=== PATIENT | female | born 1980 | race Two or more races ===

== ENCOUNTER → 2019-01-29 | Outpatient (REF) | payer OTHER ==
[2019-01-29 21:11] LABS: ALBUMIN 3.6 GM/DL (3.2-5.2); ALT/SGPT 20 U/L (12-78); BILIRUBIN,TOTAL 0.3 MG/DL (0.2-1.0); BLOOD UREA NITROGEN 14 MG/DL (7-18); CALCIUM LEVEL 8.5 MG/DL (8.5-10.1); CARBON DIOXIDE LEVEL 27 MEQ/L (21-32); CHLORIDE LEVEL 107 MEQ/L (98-107); CREATININE FOR GFR 0.83 MG/DL (0.55-1.30); FERRITIN 15 NG/ML (8-252); FREE T4 1.01 NG/DL (0.76-1.46); GLOMERULAR FILTRATION RATE > 60.0 (>60); GLUCOSE, FASTING 83 MG/DL (70-100); IRON (FE) 88 UG/DL (50-170); POTASSIUM SERUM 4.5 MEQ/L (3.5-5.1); SODIUM LEVEL 140 MEQ/L (136-145); THYROID STIMULATING HORMONE 0.544 uIU/ML (0.358-3.740)
[2019-01-29 21:14] LABS: BASO % 0.4 % (0.0-1.0); EOS # 0.1 10^3/uL (0.0-0.50); EOS % 1.9 % (0.0-3.0); HEMATOCRIT 36.3 % (36.0-47.0); HEMOGLOBIN 11.2 g/dl (12.0-15.5); LYMPH # 1.9 10^3/uL (1.5-4.5); LYMPH % 27.6 % (24.0-44.0); MEAN CORPUSCULAR HEMOGLOBIN 24.3 pg (27.0-33.0); MEAN CORPUSCULAR HGB CONC 30.9 g/dl (32.0-36.5); MEAN CORPUSCULAR VOLUME 78.9 fl (80.0-96.0); MONO # 0.6 10^3/uL (0.0-0.8); MONO % 8.6 % (0.0-5.0); NEUTROPHILS # 4.3 10^3/uL (1.8-7.7); NEUTROPHILS % 61.4 % (36.0-66.0); PLATELET COUNT, AUTOMATED 275 10^3/uL (150-450)
[2019-01-29 21:58] LABS: POIKILOCYTOSIS 2+
[2019-01-29 21:59] LABS: SCHISTOCYTES 1+
[2019-01-29 22:00] LABS: PLATELET ESTIMATE NORMAL (NORMAL)
[2019-01-29 22:02] LABS: OVALOCYTES 2+
[2019-01-29 22:07] LABS: BURR CELLS 1+
== END ==
LOC: M SFHCLERA 17:10
PROVIDERS: ATTEND Physician Assistant
DX: R53.83 Other fatigue (principal)

== ENCOUNTER → 2019-04-27 | Outpatient (CLI) | payer OTHER ==
--- NOTE | 2019-04-27 14:27 | REP ---
BILATERAL MAMMOGRAM AND RIGHT BREAST ULTRASOUND: Family history of breast cancer. Tyrer-zick risk of breast cancer 15.4%. MLO and CC views of both breasts are performed. Mild scattered fibroglandular tissue is seen without evidence of mass or architectural distortion. No clustered microcalcifications are seen. The patient reports pain in the upper half of the right breast and there is no mammographic abnormality in this region. Real-time sonographic evaluation of the upper right breast demonstrates no cystic or solid nodule. IMPRESSION: BIRADS 1: BI-RADS/ACR category 1 mammogram. Negative Mammogram. ACR 1 negative mammogram. No mass or clustered microcalcifications. There is no mammographic or sonographic evidence of mass in the upper right breast where the patient complains of pain. Followup mammogram recommended in 1 year. This mammogram was interpreted with the aid of an FDA-approved computer-aided detection system. A. Negative x-ray reports should not delay biopsy if a dominant or clinically suspicious mass is present. B. Four to eight percent of cancers are not identified by x-ray. C. Adenosis and dense breasts may obscure an underlying neoplasm. The patient states she/he had a clinical breast exam in March 2019. The patient letter being requested is M2. Electronically Signed by Sidney Romeo MD 04/27/2019 04:18 P
== END ==
LOC: M RAD 11:50
PROVIDERS: ATTEND Physician Assistant
DX: N64.4 Mastodynia (principal); Z80.3 Family history of malignant neoplasm of breast

== ENCOUNTER 2019-06-19 20:32 | Emergency (ER) | payer OTHER ==
[~2019-06-19] VITALS: Ht 160 cm; Wt 72.3 kg
[2019-06-19] MEDS ORDERED: METO1TAB7 (20:38)
[2019-06-19] MEDS ORDERED: BUTA-198 (20:38)
[2019-06-19] MEDS ORDERED: METOCLOPRAMIDE INJ 10MG/2ML VIAL (J2765) IV ONE (22:30)
[2019-06-19] MEDS ORDERED: NS 1,000 ML IV ONE (22:30)
[2019-06-19] MEDS ORDERED: KETOROLAC 30 MG/ML VIAL (J1885) IV ONE (22:30)
[2019-06-20] MEDS ORDERED: KETO10TAB PO (00:29)
[2019-06-20 00:44] VITALS: BP 123/64
--- NOTE | 2019-06-20 06:40 | ECGEPIP ---
[facility] - ED Test Date: 2019-06-19 Pat Name: GEOFF ULLOA Department: Room: - Gender: Female Sourcer: AAKASH : 1980 Requested By: MACKENZIE DAVEY BUILD AND DEPLOYMENT ENGINEER Order Number: [id number] Reading MD: Marzena Najera Measurements Intervals [place] Rate: 86 P: 69 [place]: 153 QRS: 5 QRSD: 76 T: QT: 365 QTc: 438 Interpretive Statements SINUS RHYTHM NONSPECIFIC ST & T-WAVE ABNORMALITY DELAYED R WAVE PROGRESSION NO PRIOR ECG FOR COMPARISON Electronically Signed on 06-20-2019 6:39:46 EDT by Marzena Najera
[2019-06-22] MEDS ORDERED: AMOX500C PO (16:14)
== END 2019-06-20 00:45 | disposition home or self-care (01) ==
LOC: M ED 20:32
DX: R00.2 Palpitations (principal); G43.909 Migraine, unspecified, not intractable, without status migrainosus; B34.9 Viral infection, unspecified; I48.91 Unspecified atrial fibrillation; Z79.899 Other long term (current) drug therapy
CPT/HCPCS: 80047; 87880; 93005; 96361; 96374; 96375; 99284; J1885; J2765

== ENCOUNTER 2020-08-15 06:14 | Day surgery (SDC) | payer OTHER ==
[~2020-08-15] VITALS: Ht 160 cm; Wt 96.2 kg
[~2020-08-15 06:14] MED LIST: AMOX500C PO; BUTA-198; FERR325T18; HEARTAB2; KETO10TAB PO; LIDOCAINE 1% MDV 20ML VIAL SQ PRN; METO1TAB32 PO; METO1TAB7; NAPR-885; OMEP-221; VITA500T9
[2020-08-15] MEDS ORDERED: ceFAZolin 2 GM/D5W 50 ML IV BAG (J0690 PER 500MG) As Ordered ONE (06:46)
[2020-08-15 06:53] LABS: BASO % 0.4 % (0.0-1.0); EOS # 0.1 10^3/uL (0.0-0.5); EOS % 1.6 % (0.0-3.0); HEMOGLOBIN 9.6 g/dl (12.0-15.5); LYMPH # 2.6 10^3/uL (1.5-5.0); LYMPH % 31.4 % (24.0-44.0); MEAN CORPUSCULAR HEMOGLOBIN 26.1 pg (27.0-33.0); MEAN CORPUSCULAR VOLUME 81.5 fl (80.0-96.0); MONO # 0.7 10^3/uL (0.0-0.8); NEUTROPHILS # 4.7 10^3/uL (1.5-8.5); NEUTROPHILS % 58.4 % (36.0-66.0); PLATELET COUNT, AUTOMATED 332 10^3/uL (150-450); RED BLOOD COUNT 3.68 10^6/uL (4.00-5.40); WHITE BLOOD COUNT 8.1 10^3/uL (4.0-10.0)
[2020-08-15] MEDS ORDERED: MIDAZOLAM INJ 2MG/2ML VIAL (J2250 PER 1MG) As Ordered ONE (06:57)
[2020-08-15] MEDS ORDERED: fentaNYL 250 MCG/5 ML INJECTION (J3010) As Ordered ONE (06:58)
[2020-08-15] MEDS ORDERED: dexameTHASONE 4 MG/ML 1ML VIAL (J1100 PER 1MG) As Ordered ONE (06:59)
[2020-08-15] MEDS ORDERED: ROCURONIUM BROMIDE 50 MG/5 ML VIAL As Ordered ONE (06:59)
[2020-08-15] MEDS ORDERED: propofoL 200 MG/20 ML VIAL As Ordered ONE ×2 (06:59→11:35)
[2020-08-15] MEDS ORDERED: LIDOCAINE 2% 100MG/5ML SDV (FOR ANES.) As Ordered ONE (07:00)
[2020-08-15] MEDS ORDERED: LR 1,000 ML IV ONE (07:00)
[2020-08-15] MEDS ORDERED: METHYLENE BLUE 0.5% (5MG/ML) 10 ML AMP (PROVAYBLUE) As Ordered ONE (07:10)
[2020-08-15] MEDS ORDERED: ACETAMINOPHEN 1000MG 100ML IV BTL (OFIRMEV) (J0131 PER 10MG) As Ordered ONE (07:13)
[2020-08-15] MEDS ORDERED: METOCLOPRAMIDE INJ 10MG/2ML VIAL (J2765 PER 1) As Ordered ONE (07:13)
[2020-08-15] MEDS ORDERED: ONDANSETRON 4MG/2ML VIAL As Ordered ONE (07:13)
[2020-08-15 07:23] LABS: HCG, SERUM QUALITATIVE NEGATIVE (NEGATIVE)
[2020-08-15 07:36] LABS: APPEARANCE, URINE CLEAR (CLEAR); BACTERIA, URINE AUTO NEGATIVE (NEGATIVE); BILIRUBIN, URINE AUTO NEGATIVE (NEGATIVE); BLOOD, URINE BLOOD 3+ (NEGATIVE); COLOR, URINE YELLOW (YELLOW); GLUCOSE, URINE (UA) AUTO NEGATIVE (NEGATIVE); KETONE, URINE AUTO TRACE mg/dL (NEGATIVE); LEUKOCYTE ESTERASE, URINE AUTO TRACE (NEGATIVE); MUCUS, URINE SMALL (NEGATIVE); NITRITE, URINE AUTO NEGATIVE (NEGATIVE); PROTEIN, URINE AUTO NEGATIVE (NEGATIVE); RBC, URINE AUTO 1 /HPF (0-3); SPECIFIC GRAVITY URINE AUTO 1.023 (1.002-1.035); SQUAMOUS EPITHELIAL CELL UR AU 7 /HPF (0-6); UROBILINOGEN, URINE AUTO 0.2 mg/dL (0.0-2.0); WBC, URINE AUTO 2 /HPF (0-3)
[2020-08-15] MEDS ORDERED: BUPIVACAINE LIPOSOME/PF 1.3% 20ML VIAL (13.3MG/ML)(EXPAREL)(C9290 PER1MG) As Ordered ONE (07:43)
[2020-08-15] MEDS ORDERED: ePHEDrine SULFATE 25 MG/5 ML(5MG/ML) SYRINGE As Ordered ONE (08:52)
[2020-08-15] MEDS ORDERED: HYDROmorphone HCL 2 MG/ML 1ML VIAL (J1170) As Ordered ONE (10:15)
[2020-08-15] MEDS ORDERED: NEOSTIGMINE 10MG/10ML VIAL (J2710 PER 0.5MG) As Ordered ONE (10:27)
[2020-08-15] MEDS ORDERED: GLYCOPYRROLATE INJ 0.2 MG/ML 2 ML VIAL As Ordered ONE (10:27)
[2020-08-15] MEDS ORDERED: fentaNYL 100 MCG/2 ML INJECTION (J3010) As Ordered ONE (10:59)
[2020-08-15] MEDS: fentaNYL 100 MCG/2 ML INJECTION (J3010) IV PRN ×4 (11:03→11:27)
[2020-08-15] MEDS ORDERED: METOCLOPRAMIDE INJ 10MG/2ML VIAL (J2765 PER 1) IV PRN (11:15)
[2020-08-15] MEDS ORDERED: ONDANSETRON 4MG/2ML VIAL IV PRN (11:15)
[2020-08-15] MEDS ORDERED: oxyCODONE 5MG TAB PO PRN (11:15)
[2020-08-15] MEDS ORDERED: MEPERIDINE INJ 25 MG/ML VIAL (J2175) IV PRN (11:15)
[2020-08-15] MEDS ORDERED: LR 1,000 ML IV SCH (11:15)
[2020-08-15 12:30] VITALS: BP 125/75
[2020-08-15 14:00] VITALS: BP 122/74
[2020-08-15 18:00] VITALS: BP 104/56
[2020-08-15 22:00] VITALS: BP 123/65
[2020-08-16 02:00] VITALS: BP 117/64
[2020-08-16 06:00] VITALS: BP 102/63
[2020-08-16 07:02] LABS: BASO % 0.1 % (0.0-1.0); EOS % 0.1 % (0.0-3.0); HEMATOCRIT 24.9 % (36.0-47.0); HEMOGLOBIN 7.9 g/dl (12.0-15.5); LYMPH # 1.8 10^3/uL (1.5-5.0); MEAN CORPUSCULAR HEMOGLOBIN 25.6 pg (27.0-33.0); MEAN CORPUSCULAR HGB CONC 31.7 g/dl (32.0-36.5); MEAN CORPUSCULAR VOLUME 80.8 fl (80.0-96.0); MONO # 1.1 10^3/uL (0.0-0.8); MONO % 10.4 % (0.0-5.0); NEUTROPHILS # 7.7 10^3/uL (1.5-8.5); PLATELET COUNT, AUTOMATED 282 10^3/uL (150-450); RED BLOOD COUNT 3.08 10^6/uL (4.00-5.40); WHITE BLOOD COUNT 10.7 10^3/uL (4.0-10.0)
--- NOTE | 2020-08-16 08:16 | DS.PDOC ---
Discharge Summary General Date of Admission 08/15/2020 Date of Discharge 08/16/2020 Attending Physician: ABDIRAHMAN ZELAYA DO Discharge Summary PROCEDURES PERFORMED DURING STAY: CAMI, BS, cystoscopy. ADMITTING DIAGNOSES: 1. Symptomatic fibroid uterus 2. Anemia 3. Obesity DISCHARGE DIAGNOSES: 1. DELFINO COMPLICATIONS/CHIEF COMPLAINT: Symptomatic Fibroid Uterus, Abnormal Uterine Bleed. HISTORY OF PRESENT ILLNESS: . HOSPITAL COURSE: Patient was admitted to the Pre-op surgical waiting where she was prepped for surgery. She was then taken to the operating room where she underwent an uncomplicated CAMI, BS, cystoscopy for SFU. She was awoken from general anesthesia and taken to the PACU for immediate post-operative recovery. She was then transferred to the inpatient surgical lopez for continued post- operative care. She had her leo catheter removed on POD#0. On day of discharge, she was ambulating well, tolerating a regular diet, voiding spontaneously, +flatus, and pain well-controlled on oral pain medications. She was counseled on strict return precautions and to pick up driver her discharge medications at [facility]. She was instructed to f/u for post-operative appointment in 2 weeks. All questions answered. DISCHARGE MEDICATIONS: Please see below. ALLERGIES: Adhesives PHYSICAL EXAMINATION ON DISCHARGE: VITAL SIGNS: Please see below. GENERAL: Well-appearing, resting comfortably in bed in NAD, conversing in full sentences, AAOx3 HEENT: NC/AT, airway patent and self-maintained. CARDIOVASCULAR EXAMINATION: well-perfused RESPIRATORY EXAMINATION: no exaggerated respiratory effort appreciated ABDOMINAL EXAMINATION: soft, NT/ND, incision c/d/i - dressing removed by jd hoganvicolton, steri-strips intact EXTREMITIES: No calf-tenderness, no edema SKIN: warm, pink, dry LABORATORY DATA: Please see below. PROGNOSIS: Good ACTIVITY: As tolerated. DIET: Regular as tolerated DISPOSITION: To home DISCHARGE INSTRUCTIONS: 1. See patient scheduling coordinator ITEMS TO FOLLOWUP ON ON OUTPATIENT: 1. Incision check at [facility] INTAKE RN in 2 weeks as scheduled DISCHARGE CONDITION: Stable. TIME SPENT ON DISCHARGE: Greater than 20 minutes. Vital Signs/I&Os Vital Signs Date Time Temp Pulse Resp B/P (MAP) Pulse Ox O2 Delivery O2 Flow Rate FiO2 08/16/20 06:00 99.9 92 24 102/63 (76) 97 Room Air 08/15/20 13:00 2.0 I&O- Last 24 Hours up to 6 AM 08/16/20 06:00 Intake Total 2200 ml Output Total 1680 ml Balance 520 ml Laboratory Data Labs 24H Laboratory Tests 2 08/16/20 06:39: Immature Granulocyte % (Auto) 0.4, Neutrophils (%) (Auto) 72.0H, Lymphocytes (%) (Auto) 17.0L, Monocytes (%) (Auto) 10.4H, Eosinophils (%) (Auto) 0.1, Basophils (%) (Auto) 0.1, Neutrophils # (Auto) 7.7, Lymphocytes # (Auto) 1.8, Monocytes # (Auto) 1.1H, Eosinophils # (Auto) 0.0, Basophils # (Auto) 0.0, Nucleated Red Blood Cells % (auto) 0.0 CBC/BMP Laboratory Tests 08/16/20 06:39 Discharge Medications Scheduled Ferrous Sulfate (Ferrous Sulfate) 325 Mg Tablet, DAILY, (Reported) Metoprolol Succinate (Metoprolol Succinate) 25 Mg Tab.er.24h, 75 MG PO QHS, ( Reported) Miscellaneous Medications Ascorbic Acid (Vitamin C) 500 Mg Tablet, (Reported) Famotidine (Heartburn Relief) 10 Mg Tablet, (Reported) Omeprazole (Omeprazole) 40 Mg Capsule., (Reported) Allergies Coded Allergies: No Known Allergies (Unverified , 08/08/20) ABDIRAHMAN ZELAYA DO Aug 16, 2020 08:16
--- NOTE | 2020-08-16 22:10 | ROOPDOC ---
[facility] Report Of Operation Report of Operation DATE OF PROCEDURE: 08/15/20 PREPROCEDURE DIAGNOSES: 1. Symptomatic Fibroid uterus 2. Abnormal uterine bleeding 3. Anemia 4. Obesity POSTPROCEDURE DIAGNOSES: 1. Symptomatic Fibroid uterus 2. Abnormal uterine bleeding 3. Anemia 4. Obesity PROCEDURE: 1. Total abdominal hysterectomy 2. Bilateral salpingectomy 3. Cystoscopy SURGEON: Dr. Minal Celeste MD PROCESS CONSULTANT: Dr. Edie Srinivasan MD ANESTHESIA: General. ESTIMATED BLOOD LOSS: Approximately 90 mL. COMPLICATIONS: None DESCRIPTION OF PROCEDURE: The risks, benefits, indications and alternatives of the procedure were reviewed with the patient and informed consent was obtained. The pt was taken to the operating room where general anesthesia was obtained without difficulty. The pt was then placed in the low lithotomy position using Anshu Stirrups. An exam under anesthesia was then performed and significant for a midline, 16-week sized, axial uterus. An abdominal and vaginal prep were then performed in the normal, sterile fashion and a leo catheter was placed. A Pfannenstiel skin incision was then made and carried down to the underlying layer of fascia using electrocautery. The fascia was entered with Bovie cautery and extended bilaterally. The underlying rectus fascia and muscle layers were then in the midline and peritoneum identified and entered bluntly. The peritoneal incision was then extended superiorly and inferiorly using Bovie cautery. Manual and visual examination of the pelvis was notable for a lobular 16 week size uterus with multiple fibroids. Bilateral ovaries and fallopian tubes were normal-appearing. The bowel was then packed from the operating field using moist laps. A Mobius self-retaining retractor was placed into the abdominal cavity and opened for pelvic exposure. Two [place]on clamps were placed across each fallopian tube and utero-ovarian ligament immediately lateral to the uterus, and the uterus was elevated to the level of the incision. The round ligaments were bilaterally grasped with [place] clamps near the uterine cornua. The round ligaments were then suture ligated with 0-vicryl and transected using electrocautery bilaterally, allowing entry into the broad ligament. The anterior leaves of the broad ligament were then incised along the bladder reflection on both sides to the midline, and the posterior leaves of the broad ligament were incised 1-2 cm inferiorly. The pararectal spaces were then developed, and the ureters identified bilaterally. A window was created in an avascular plane of the broad ligament, below and parallel to the IP ligament, and above the ureter. The fallopian tube and utero-ovarian ligaments were then doubly clamped as close as possible to the uterine corpus, transected, and suture ligated with 0-vicryl on both sides. The pedicles were then reinspected, with excellent hemostasis noted. The bilateral fallopian tubes were transected off of the mesosalpinx with the Ligasure device and sent to pathology. The bladder was then gently dissected off the lower uterine segment and cervix using a sponge stick, until the endopelvic fascia was visualized. The uterine arteries were then identified along the lateral aspects of the uterus at the level of the isthmus and skeletonized. The uterine arteries were then doubly clamped, transected with the Ligasure, and suture ligated. Hemostasis was assured. The cardinal ligaments were then clamped, transected with the Ligasure, and suture ligated bilaterally. Finally, the uterosacral ligaments were clamped, transected with the Ligasure, and suture ligated bilaterally. Hemostatis was noted. Curved clamps were placed across the vagina just under the cervix and the uterus and cervix were amputated using Guicho scissors. The vaginal cuff angles were closed and transfixed to the ipsilateral uterosacral and cardinal ligaments. The remainder of the cuff was closed using 0-vicryl in an interrupted fashion with care given to incorporate the anterior pubocervical fascia and the posterior rectovaginal fascia. The cystoscope was then primed and advanced through the urethra and into the bladder. Both ureteral orifices were identified and bilateral efflux of urine visualized. A survey of bladder showed no defects or visible suture. The cystoscope was then removed and the Leo catheter replaced to drain the bladder. Gloves were exchanged and attention was then returned to the abdomen which was then copiously irrigated. All pedicles were noted to be hemostatic. All packing and instruments were removed from the abdomen. The fascia was reapproximated using 0-vicryl in a running fashion. The subcutaneous tissue was reapproximated using 3-0 vicryl in an interrupted fashion. The skin was closed with 4-0 monocryl in a running fashion. A pressure dressing was applied A manual exam was then performed and the vagina demonstrated excellent suspension and elevation. A vaginal sweep was performed and confirmed no retained foreign objects remained in the vagina. At the completion of the case, sponge, lap, needle, and instrument counts were correct x2 and pt was taken to PACU in stable condition. MINAL CELESTE DO Aug 16, 2020 22:10
== END 2020-08-16 11:20 | disposition home or self-care (01) ==
LOC: M SDC 06:14 → M MS5PR 12:20 → M SDC 08-16 11:20
DX: C55 Malignant neoplasm of uterus, part unspecified (principal); I10 Essential (primary) hypertension; I48.91 Unspecified atrial fibrillation; N93.9 Abnormal uterine and vaginal bleeding, unspecified; D50.0 Iron deficiency anemia secondary to blood loss (chronic); E66.9 Obesity, unspecified; K21.9 Gastro-esophageal reflux disease without esophagitis; L20.9 Atopic dermatitis, unspecified; G43.909 Migraine, unspecified, not intractable, without status migrainosus; Z79.899 Other long term (current) drug therapy
CPT/HCPCS: 36415; 58571; 81001; 84703; 85025; 86850; 88307; 88342; C9290; J0690; J1100; J1170; J1885; J2250; J2405; J2710; J2765; J3010

== ENCOUNTER → 2020-09-04 | Outpatient (CLI) | payer OTHER ==
[~2020-09-04] MED LIST changes: +GASTROGRAFIN SOLUTION 30ML (Q9963) As Ordered ONE; +ISOVUE-370 76% 100ML VIAL As Ordered ONE; -LIDOCAINE 1% MDV 20ML VIAL SQ PRN
--- NOTE | 2020-09-11 10:52 | REP ---
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 No comparison study. CT CONTRAST DOSE: 100ml of intravenous Isovue 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 The lung tejeda are well inflated and clear. There is no evidence of pulmonary mass, suspicious pulmonary nodule, or infiltrate of atelectasis or pleural effusion is seen. There is no evidence of pericardial effusion> no hilar or mediastinal mass or adenopathy is observed. There is good opacification of the pulmonary arterial tree and the thoracic aorta and no vascular abnormality is observed. No bony destructive lesion is seen. No extra thoracic mass or adenopathy is seen. IMPRESSION: No active disease. MTDD
--- NOTE | 2020-09-11 10:53 | REP ---
CT ABDOMEN AND PELVIS WITHOUT AND WITH IV CONTRAST: WITH ORAL CONTRAST HISTORY: Uterine leiomyosarcoma. Question metastatic disease. CT CONTRAST DOSE: 100 mL of intravenous Isovue-370. CT FINDINGS: Digital preliminary hand wrapper operator radiograph is unremarkable. Normal bowel gas pattern. The liver and the spleen are normal in size and homogeneous in texture on pre and post contrast imaging. No focal hepatic lesion. Normal adrenal glands. No abnormality is noted in the pancreas or in the gallbladder. There is a retroaortic left renal vein. No retroperitoneal mass or adenopathy is observed. A normal appendix is seen in the right lower quadrant. The ovaries are both somewhat high in the pelvis post hysterectomy but unremarkable. There is a 2.2 cm follicle cyst in the left ovary. Some postoperative changes are seen across the suprapubic lower abdominal wall anteriorly. No pelvic mass or adenopathy or abnormal fluid collection is seen. Small and large intestinal bowel loops are normal in the abdomen and pelvis. The kidneys enhance symmetrically and are morphologically intact. No evidence of bony destructive lesion is seen. IMPRESSION: Posthysterectomy changes. No acute abdominal or pelvic abnormality. No mass or adenopathy seen. MTDD
== END ==
LOC: M RAD 16:23
DX: C55 Malignant neoplasm of uterus, part unspecified (principal); Z90.79 Acquired absence of other genital organ(s)
CPT/HCPCS: 71260; 74178; Q9963; Q9967

== ENCOUNTER 2020-11-07 12:01 | Emergency (ER) | payer OTHER ==
[~2020-11-07] VITALS: Ht 160 cm; Wt 95.7 kg
[~2020-11-07 12:01] MED LIST changes: -GASTROGRAFIN SOLUTION 30ML (Q9963) As Ordered ONE; -ISOVUE-370 76% 100ML VIAL As Ordered ONE
[2020-11-07] MEDS ORDERED: ACET-683 PO (12:11)
[2020-11-07] MEDS ORDERED: NS 1,000 ML IV ONE (13:45)
[2020-11-07] MEDS ORDERED: MECLIZINE 25 MG TABLET PO ONE (13:45)
--- NOTE | 2020-11-07 13:50 | REP ---
INDICATION: dizziness, h/o uterine CA. COMPARISON: None. TECHNIQUE: Helical scanning is acquired. 5 mm axial images were reformatted. Coronal MPR images were generated. FINDINGS: Bone window settings demonstrate an intact bony calvarium. There is no evidence of skull fracture or incidental bony calvarial lesion. The visualized paranasal sinuses appear clear. No intraorbital abnormality is seen. On soft tissue window setting images; the lateral, third, and fourth ventricles are normal in size and position. Romeo-white differentiation pattern is normal above and below the tentorium. There are is no evidence of intracranial hemorrhage. No mass, edema, infarction, or midline shift is seen. No extra-axial fluid collection is appreciated. IMPRESSION: Negative noncontrast head CT. <Electronically signed by Azael Rowell > 11/07/20 [id number]
[2020-11-07 14:10] LABS: HEMOGLOBIN 11.6 g/dl (12.0-15.5); RED BLOOD COUNT 5.02 10^6/uL (4.00-5.40); WHITE BLOOD COUNT 8.3 10^3/uL (4.0-10.0)
[2020-11-07 14:11] LABS: BASO % 0.5 % (0.0-1.0); EOS # 0.1 10^3/uL (0.0-0.5); EOS % 0.7 % (0.0-3.0); HEMATOCRIT 38.1 % (36.0-47.0); LYMPH # 1.7 10^3/uL (1.5-5.0); LYMPH % 20.5 % (24.0-44.0); MEAN CORPUSCULAR HEMOGLOBIN 23.1 pg (27.0-33.0); MEAN CORPUSCULAR HGB CONC 30.4 g/dl (32.0-36.5); MEAN CORPUSCULAR VOLUME 75.9 fl (80.0-96.0); MONO # 0.4 10^3/uL (0.0-0.8); MONO % 4.7 % (0.0-5.0); NEUTROPHILS # 6.1 10^3/uL (1.5-8.5); NEUTROPHILS % 73.2 % (36.0-66.0); PLATELET COUNT, AUTOMATED 395 10^3/uL (150-450)
[2020-11-07 14:43] LABS: ALBUMIN 3.7 GM/DL (3.2-5.2); ALT/SGPT 21 U/L (12-78); BILIRUBIN,TOTAL 0.5 MG/DL (0.2-1.0); BLOOD UREA NITROGEN 13 MG/DL (7-18); CARBON DIOXIDE LEVEL 26 MEQ/L (21-32); CHLORIDE LEVEL 107 MEQ/L (98-107); CK-MB VALUE MASS < 1.0 NG/ML (<3.6); CPK CREATINE PHOSPHOKINASE 104 U/L (26-192); CREATININE FOR GFR 0.79 MG/DL (0.55-1.30); GLOMERULAR FILTRATION RATE > 60.0 (>58); GLUCOSE, FASTING 91 MG/DL (70-100); MB/CK RELATIVE INDEX 0.96 (< OR =4); POTASSIUM SERUM 4.3 MEQ/L (3.5-5.1); SODIUM LEVEL 140 MEQ/L (136-145); TOTAL PROTEIN 7.5 GM/DL (6.4-8.2); TROPONIN I < 0.02 NG/ML (< 0.10)
[2020-11-07 15:45] LABS: APPEARANCE, URINE CLEAR (CLEAR); BACTERIA, URINE AUTO NEGATIVE (NEGATIVE); BILIRUBIN, URINE AUTO NEGATIVE (NEGATIVE); BLOOD, URINE BLOOD NEGATIVE (NEGATIVE); COLOR, URINE YELLOW (YELLOW); GLUCOSE, URINE (UA) AUTO NEGATIVE (NEGATIVE); KETONE, URINE AUTO NEGATIVE (NEGATIVE); LEUKOCYTE ESTERASE, URINE AUTO NEGATIVE (NEGATIVE); MUCUS, URINE SMALL (NEGATIVE); NITRITE, URINE AUTO NEGATIVE (NEGATIVE); PROTEIN, URINE AUTO NEGATIVE (NEGATIVE); RBC, URINE AUTO 1 /HPF (0-3); SPECIFIC GRAVITY URINE AUTO 1.024 (1.002-1.035); SQUAMOUS EPITHELIAL CELL UR AU 0 /HPF (0-6); UROBILINOGEN, URINE AUTO 0.2 mg/dL (0.0-2.0); WBC, URINE AUTO 0 /HPF (0-3)
[2020-11-07] MEDS ORDERED: MECL1TAB31 PO (15:53)
[2020-11-07 16:03] VITALS: BP 123/76
--- NOTE | 2020-11-08 08:28 | ECGEPIP ---
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
== END 2020-11-07 16:05 | disposition home or self-care (01) ==
LOC: M ED 12:01
DX: H81.10 Benign paroxysmal vertigo, unspecified ear (principal); I48.91 Unspecified atrial fibrillation; I10 Essential (primary) hypertension; G43.909 Migraine, unspecified, not intractable, without status migrainosus; K21.9 Gastro-esophageal reflux disease without esophagitis; Z79.899 Other long term (current) drug therapy

== ENCOUNTER → 2020-12-27 | Outpatient (CLI) | payer OTHER ==
[~2020-12-27] MED LIST changes: +ACET-683 PO; +GASTROGRAFIN SOLUTION 30ML (Q9963) As Ordered ONE; +ISOVUE-370 76% 100ML VIAL As Ordered ONE; +MECL1TAB31 PO
--- NOTE | 2020-12-28 06:23 | REP ---
INDICATION: LEIOMYOSARCOMA COMPARISON: 09/04/2020 TECHNIQUE: Axial contrast enhanced images from the thoracic inlet to the upper abdomen using 100 ml Isovue 370 intravenous contrast material followed by CT of the abdomen and pelvis. Coronal and sagittal reformations obtained. This CT examination was performed using the following dose reduction techniques: Automated exposure control, adjustment of mA and/or kv according to the patient's size, and use of iterative reconstruction technique. FINDINGS: Bilateral lung tejeda are well aerated and clear. No consolidation, suspicious nodule or mass lesion. No pleural effusion. No pneumothorax. Tracheobronchial tree is patent. No axillary, hilar, or mediastinal adenopathy. Thoracic aorta, pulmonary vasculature, and heart/pericardium appear normal. Surrounding musculoskeletal structures are intact and without acute osseous abnormality. IMPRESSION: Normal contrast-enhanced chest CT. No acute mediastinal or pleuroparenchymal process. No evidence for neoplasm or metastatic disease. <Electronically signed by Haroldo Angelo > 12/28/20 [id number]
--- NOTE | 2020-12-28 06:30 | REP ---
INDICATION: LEIOMYOSARCOMA. COMPARISON: 09/04/2020 TECHNIQUE: Axial contrast-enhanced images from the lung bases to the pubic symphysis using oral and 100 cc Isovue 370 intravenous contrast material. Delayed images of the abdomen as well as coronal and sagittal reformations obtained.. This CT examination was performed using the following dose reduction techniques: Automated exposure control, adjustment of mA and/or kv according to the patient's size, and the use of iterative reconstruction technique. FINDINGS: Liver, spleen, pancreas, gallbladder, bilateral adrenal glands and kidneys are normal. The enteric system including stomach, small, and large bowel appears normal. No evidence for obstruction or acute inflammatory process. Normal terminal ileum and appendix are identified in the right lower quadrant. Pelvis demonstrates normal bladder and evidence for prior hysterectomy. No ascites. No free air. No intraperitoneal or retroperitoneal adenopathy. Abdominal aorta and vasculature appear normal. Musculoskeletal structures are intact and without acute osseous abnormality. IMPRESSION: No acute abdominopelvic pathology appreciated. No evidence for metastatic disease or obvious neoplasm. <Electronically signed by Haroldo Angelo > 12/28/20 [id number]
== END ==
LOC: M RAD 08:36
PROVIDERS: ATTEND Obstetrics & Gynecology
DX: C49.9 Malignant neoplasm of connective and soft tissue, unspecified (principal)

== ENCOUNTER → 2021-02-06 | Outpatient (CLI) | payer OTHER ==
[~2021-02-06] MED LIST changes: -GASTROGRAFIN SOLUTION 30ML (Q9963) As Ordered ONE; -ISOVUE-370 76% 100ML VIAL As Ordered ONE
--- NOTE | 2021-02-06 14:47 | REP ---
INDICATION: LT OVARIAN CYST. COMPARISON: 11/13/2020. TECHNIQUE: Transabdominal and transvaginal scanning performed. FINDINGS: The bladder measures 6.8 x 6.3 x 8.1 cm. The patient has had a prior hysterectomy. The ovaries could not be visualized on transabdominal or endovaginal imaging. There is no definite mass or free fluid in the pelvis. IMPRESSION: Status post hysterectomy. The ovaries could not be visualized on today's exam. No definite mass or free fluid. The previously noted 3.3 cm left ovarian cyst on the ultrasound of 11/13/2020 does appear to have decreased in size on the follow-up CT of abdomen and pelvis 12/27/2020, on the CT the largest left ovarian cyst measures approximately 2.1 cm. <Electronically signed by Sidney Romeo > 02/06/21 [id number]
== END ==
LOC: M RAD 12:06
PROVIDERS: ATTEND Obstetrics & Gynecology
DX: N83.202 Unspecified ovarian cyst, left side (principal); Z90.79 Acquired absence of other genital organ(s)

== ENCOUNTER 2021-02-16 08:32 | Emergency (ER) | payer OTHER ==
[~2021-02-16] VITALS: Ht 160 cm; Wt 100.4 kg
[2021-02-16 09:37] LABS: BASO % 0.2 % (0.0-1.0); EOS # 0.1 10^3/uL (0.0-0.5); EOS % 0.7 % (0.0-3.0); HEMATOCRIT 38.3 % (36.0-47.0); HEMOGLOBIN 12.4 g/dl (12.0-15.5); LYMPH # 1.5 10^3/uL (1.5-5.0); LYMPH % 16.3 % (24.0-44.0); MEAN CORPUSCULAR HEMOGLOBIN 26.3 pg (27.0-33.0); MEAN CORPUSCULAR HGB CONC 32.4 g/dl (32.0-36.5); MEAN CORPUSCULAR VOLUME 81.1 fl (80.0-96.0); MONO # 0.6 10^3/uL (0.0-0.8); MONO % 6.7 % (2.0-8.0); NEUTROPHILS # 6.9 10^3/uL (1.5-8.5); NEUTROPHILS % 75.9 % (36.0-66.0); PLATELET COUNT, AUTOMATED 362 10^3/uL (150-450); RED BLOOD COUNT 4.72 10^6/uL (4.00-5.40)
[2021-02-16 09:47] LABS: INR 0.96
[2021-02-16 09:48] LABS: PARTIAL THROMBOPLASTIN TIME 27.8 SECONDS (24.2-38.5)
[2021-02-16 10:00] LABS: ALBUMIN 3.6 GM/DL (3.2-5.2); ALT/SGPT 20 U/L (12-78); AMYLASE 50 U/L (25-115); BILIRUBIN,DIRECT 0.1 MG/DL (0.0-0.2); BILIRUBIN,TOTAL 0.3 MG/DL (0.2-1.0); BLOOD UREA NITROGEN 14 MG/DL (7-18); CALCIUM LEVEL 9.1 MG/DL (8.5-10.1); CARBON DIOXIDE LEVEL 27 MEQ/L (21-32); CHLORIDE LEVEL 107 MEQ/L (98-107); CREATININE FOR GFR 0.79 MG/DL (0.55-1.30); GLOMERULAR FILTRATION RATE > 60.0 (>58); GLUCOSE, FASTING 96 MG/DL (70-100); LIPASE 125 U/L (73-393); POTASSIUM SERUM 4.5 MEQ/L (3.5-5.1); SODIUM LEVEL 137 MEQ/L (136-145); TOTAL PROTEIN 7.2 GM/DL (6.4-8.2)
[2021-02-16] MEDS ORDERED: NS 1,000 ML IV ONE (10:00)
[2021-02-16] MEDS ORDERED: ISOVUE-370 76% 100ML VIAL As Ordered ONE (10:04)
[2021-02-16 10:28] VITALS: BP 136/88
--- NOTE | 2021-02-16 10:44 | REP ---
INDICATION: abdominal cramping, lower gi bleed. COMPARISON: Abdomen/pelvis CT studies dated 09/04/2020 and 12/27/2020. TECHNIQUE: Abdomen/pelvis CT with IV contrast, without bowel contrast. Patient has a history of uterine leiomyosarcoma and hysterectomy. FINDINGS: The visualized lung tejeda are unremarkable. The hepatic parenchyma is homogeneous. The gallbladder, pancreas and spleen are unremarkable. The adrenals and kidneys are unremarkable. The abdominal aorta is unremarkable. There is no periaortic adenopathy or mass. There is wall thickening and hypodensity in the transverse colon, descending colon and proximal sigmoid colon. This is compatible with infectious versus inflammatory colitis in the appropriate clinical setting and is a change from the comparison studies. Pelvis: The appendix is unremarkable. The vaginal cuff has increased thickness, today measuring 1.8 cm AP, previously 0.6 cm AP on 12/27/2020 and 0.6 cm thickness on 09/04/2020. The above bladder is unremarkable. The 2.2 cm left adnexal cyst identified on 09/04/2020 is no longer present today. There is no pelvic ascites. There is no pelvic adenopathy. There are no lytic, blastic or destructive skeletal changes. IMPRESSION: The vaginal cuff appears thickened on the study today compared to prior studies as discussed above. The left adnexal cyst identified on 09/04/2020 is no longer present. There are findings compatible with in infectious versus inflammatory colitis in the transverse colon, descending colon and proximal sigmoid colon. This is a change from the prior studies. There is no adenopathy or ascites. No evidence of metastatic disease otherwise. <Electronically signed by Sidney Srinivasan > 02/16/21 [id number]
[2021-02-16] MEDS ORDERED: metroNIDAZOLE (FLAGYL) 500MG TABLET PO ONE (13:00)
[2021-02-16] MEDS ORDERED: CIPROFLOXACIN 500MG TABLET PO ONE (13:00)
[2021-02-16] MEDS ORDERED: CIPR-249 PO (13:12)
[2021-02-16] MEDS ORDERED: METR-265 PO (13:12)
[2021-02-16] MEDS ORDERED: ONDA4TAB6 PO (13:12)
== END 2021-02-16 13:00 | disposition home or self-care (01) ==
LOC: M ED 08:32
DX: K92.2 Gastrointestinal hemorrhage, unspecified (principal); K52.9 Noninfective gastroenteritis and colitis, unspecified; I48.91 Unspecified atrial fibrillation; I10 Essential (primary) hypertension; G43.909 Migraine, unspecified, not intractable, without status migrainosus; R42 Dizziness and giddiness; K21.9 Gastro-esophageal reflux disease without esophagitis; Z79.899 Other long term (current) drug therapy
CPT/HCPCS: 36415; 74177; 80048; 80076; 82150; 83690; 85025; 85610; 85730; 86850; 86900; 86901; 93041; 96360; 96361; 99285; Q9967

== ENCOUNTER → 2021-09-17 | Outpatient (CLI) | payer OTHER ==
[~2021-09-17] MED LIST changes: +CIPR-249 PO; +GASTROGRAFIN SOLUTION 30ML (Q9963) ONE; +ISOVUE-370 76% 100ML VIAL ONE; +METR-265 PO; +ONDA4TAB6 PO
--- NOTE | 2021-09-17 11:17 | REP ---
INDICATION: NEOPLASM OF CONNECTIVE SOFT TISSUES COMPARISON: 12/27/2020 TECHNIQUE: Axial contrast enhanced images from the thoracic inlet to the upper abdomen with coronal and sagittal reformations using 100 ml Isovue 370 intravenous contrast material. This CT examination was performed using the following dose reduction techniques: Automated exposure control, adjustment of mA and/or kv according to the patient's size, and use of iterative reconstruction technique. FINDINGS: Bilateral lung tejeda are well aerated and essentially clear. No acute consolidation, suspicious nodule, or mass. No effusion. No pneumothorax. Tracheobronchial tree is patent. No axillary, hilar, or mediastinal adenopathy. Thoracic aorta, pulmonary vasculature, and heart/pericardium are normal. Surrounding musculoskeletal structures are intact. IMPRESSION: Normal contrast-enhanced chest CT. No acute mediastinal or pleuroparenchymal process. No evidence for malignancy or metastatic disease. <Electronically signed by Haroldo Angelo > 09/17/21 [id number]
--- NOTE | 2021-09-17 11:22 | REP ---
INDICATION: NEOPLASM OF CONNECTIVE/SOFT TISSUES. COMPARISON: 02/16/2021, 12/27/2020 TECHNIQUE: Axial contrast-enhanced images from the lung bases to the pubic symphysis using oral and 100 cc Isovue 370 intravenous contrast material. Precontrast and delayed images of the abdomen obtained along with coronal and sagittal reformations.. This CT examination was performed using the following dose reduction techniques: Automated exposure control, adjustment of mA and/or kv according to the patient's size, and the use of iterative reconstruction technique. FINDINGS: Liver, spleen, pancreas, gallbladder, bilateral adrenal glands and kidneys are normal. Incidental stable 1 cm left renal cyst noted. The enteric system including stomach, small, and large bowel appears normal. No evidence for obstruction or acute inflammatory process. Normal terminal ileum and appendix are identified in the right lower quadrant. Pelvis demonstrates normal bladder and evidence for prior hysterectomy. There is a 4 cm left adnexal cyst with adjacent soft tissue likely representing cystic change to the left ovary and demonstrating variation in size when compared with prior examinations. No ascites. No free air. No intraperitoneal or retroperitoneal adenopathy. Abdominal aorta and vasculature appear normal. Musculoskeletal structures are intact and without acute osseous abnormality. IMPRESSION: 1. Current examination now demonstrates a 4 cm left adnexal cyst likely ovarian in nature which has increased in size from prior examination. Correlation with pelvic ultrasound is recommended. Finding less likely represents metastatic focus. 2. Remainder of the examination is essentially normal/stable. <Electronically signed by Haroldo Angelo > 09/17/21 [id number]
== END ==
LOC: M PLAIMG 09:00
PROVIDERS: ATTEND Obstetrics & Gynecology
DX: C49.9 Malignant neoplasm of connective and soft tissue, unspecified (principal)
CPT/HCPCS: 71260; 74178; Q9963; Q9967

== ENCOUNTER → 2022-10-31 | Outpatient (CLI) | payer OTHER ==
[~2022-10-31] MED LIST changes: -GASTROGRAFIN SOLUTION 30ML (Q9963) ONE; -ISOVUE-370 76% 100ML VIAL ONE; -OMEP-221; +OMEP40CA5
== END ==
LOC: M RAD 10:31
PROVIDERS: ATTEND Obstetrics & Gynecology
DX: N83.202 Unspecified ovarian cyst, left side (principal)

== ENCOUNTER → 2022-11-19 | Outpatient (CLI) | payer OTHER ==
[~2022-11-19] MED LIST changes: +OMEP-173 PO; +TOPR50TA PO
== END ==
LOC: M ONCR 09:05
PROVIDERS: ATTEND General Practice
DX: C55 Malignant neoplasm of uterus, part unspecified (principal); C79.51 Secondary malignant neoplasm of bone; G43.909 Migraine, unspecified, not intractable, without status migrainosus; Z79.899 Other long term (current) drug therapy; Z80.42 Family history of malignant neoplasm of prostate

== ENCOUNTER 2022-11-27 12:51 | Outpatient (RCR) | payer OTHER | END 2022-11-30 | LOC: M ONCR 12:51 | PROVIDERS: ATTEND General Practice | DX: C79.51 Secondary malignant neoplasm of bone (principal); C54.1 Malignant neoplasm of endometrium ==

== ENCOUNTER 2022-12-13 08:13 | Outpatient (RCR) | payer OTHER ==
[~2022-12-13 08:13] MED LIST changes: +ISOVUE-370 76% 100ML VIAL As Ordered ONE
== END 2022-12-31 ==
LOC: M ONCR 08:13
PROVIDERS: ATTEND General Practice
DX: C79.51 Secondary malignant neoplasm of bone (principal); C54.1 Malignant neoplasm of endometrium

== ENCOUNTER → 2022-12-23 | Outpatient (CLI) | payer OTHER ==
[~2022-12-23] MED LIST changes: +GASTROGRAFIN SOLUTION 30ML As Ordered ONE
== END ==
LOC: M RAD 07:55
PROVIDERS: ATTEND Obstetrics & Gynecology
DX: C49.9 Malignant neoplasm of connective and soft tissue, unspecified (principal)

== ENCOUNTER → 2023-05-14 | Outpatient (CLI) | payer OTHER ==
[~2023-05-14] MED LIST changes: +BUTA1CAP; +DEXA4TA PO; -GASTROGRAFIN SOLUTION 30ML As Ordered ONE; +IBUP-1728; -ISOVUE-370 76% 100ML VIAL As Ordered ONE; +[UNRECOGNIZED DRUG - CODE]
== END ==
LOC: M ONCR 09:24
PROVIDERS: ATTEND General Practice
DX: C79.51 Secondary malignant neoplasm of bone (principal); C54.1 Malignant neoplasm of endometrium; Z92.3 Personal history of irradiation; Z90.710 Acquired absence of both cervix and uterus; Z90.79 Acquired absence of other genital organ(s); Z90.722 Acquired absence of ovaries, bilateral

== ENCOUNTER 2023-06-24 01:51 | Emergency (ER) | payer OTHER ==
[~2023-06-24] VITALS: Ht 157.5 cm; Wt 92.4 kg
[~2023-06-24 01:51] MED LIST changes: -LIDOCAINE 2% MDV 20ML VIAL XX ONE; -LOPE1CAP5 PO; -VANI1CRE5 TOP
[2023-06-24] MEDS ORDERED: VANI1CRE5 TOP (02:02)
[2023-06-24] MEDS ORDERED: LOPE1CAP5 PO (02:02)
[2023-06-24 07:00] VITALS: TEMP 97.2
[2023-06-24] MEDS ORDERED: NS 1,000 ML IV ONE (08:00)
[2023-06-24 08:31] LABS: BASO % 0.7 % (0.0-1.0); EOS # 0.2 10^3/uL (0.0-0.5); EOS % 2.8 % (0.0-3.0); HEMATOCRIT 39.1 % (36.0-47.0); HEMOGLOBIN 12.6 g/dl (12.0-15.5); LYMPH % 35.4 % (24.0-44.0); MEAN CORPUSCULAR HEMOGLOBIN 26.9 pg (27.0-33.0); MEAN CORPUSCULAR HGB CONC 32.2 g/dl (32.0-36.5); MEAN CORPUSCULAR VOLUME 83.5 fl (80.0-96.0); MONO # 0.4 10^3/uL (0.0-0.8); MONO % 7.7 % (2.0-8.0); NEUTROPHILS # 3.1 10^3/uL (1.5-8.5); NEUTROPHILS % 53.2 % (36.0-66.0); PLATELET COUNT, AUTOMATED 275 10^3/uL (150-450); RED BLOOD COUNT 4.68 10^6/uL (4.00-5.40); WHITE BLOOD COUNT 5.7 10^3/uL (4.0-10.0)
[2023-06-24] MEDS ORDERED: ISOVUE-370 76% 100ML VIAL As Ordered ONE (08:45)
[2023-06-24 09:21] LABS: ALBUMIN 3.3 G/DL (3.2-5.2); BILIRUBIN,DIRECT 0.1 MG/DL (<0.4); BILIRUBIN,TOTAL 0.5 MG/DL (0.3-1.2); POTASSIUM SERUM 4.4 MMOL/L (3.5-5.1); TOTAL PROTEIN 6.8 G/DL (5.7-8.2)
[2023-06-24 10:12] VITALS: BP 122/70; O2SAT 96
== END 2023-06-24 10:18 | disposition home or self-care (01) ==
LOC: M ED 01:51
DX: R22.31 Localized swelling, mass and lump, right upper limb (principal); G43.909 Migraine, unspecified, not intractable, without status migrainosus; I10 Essential (primary) hypertension; K21.9 Gastro-esophageal reflux disease without esophagitis; Z79.83 Long term (current) use of bisphosphonates; Z79.899 Other long term (current) drug therapy
CPT/HCPCS: 10005; 36415; 71260; 73201; 76882; 80047; 80076; 84132; 85025; 88305; 99284; G0463; Q9967

== ENCOUNTER → 2023-06-24 | Outpatient (CLI) | payer OTHER ==
[~2023-06-24] MED LIST changes: +LIDOCAINE 2% MDV 20ML VIAL XX ONE; +LOPE1CAP5 PO; +VANI1CRE5 TOP
== END ==
LOC: M ONCR 09:11
PROVIDERS: ATTEND General Practice
DX: C54.1 Malignant neoplasm of endometrium (principal); C79.89 Secondary malignant neoplasm of other specified sites; Z71.2 Person consulting for explanation of examination or test findings; Z79.1 Long term (current) use of non-steroidal anti-inflammatories (NSAID); Z79.899 Other long term (current) drug therapy; Z90.710 Acquired absence of both cervix and uterus; Z90.722 Acquired absence of ovaries, bilateral; Z90.79 Acquired absence of other genital organ(s); Z92.3 Personal history of irradiation

== ENCOUNTER → 2023-09-23 | Outpatient (CLI) | payer OTHER ==
[~2023-09-23] MED LIST changes: +GASTROGRAFIN SOLUTION 30ML As Ordered ONE; +ISOVUE-370 76% 100ML VIAL As Ordered ONE; +LOPE1CAP5 PO; +MECL-209 PO; -MECL1TAB31 PO; +VANI1CRE5 TOP
== END ==
LOC: M RAD 15:58
PROVIDERS: ATTEND General Practice
DX: C54.1 Malignant neoplasm of endometrium (principal); C79.51 Secondary malignant neoplasm of bone
CPT/HCPCS: 71260; 74177; Q9963; Q9967

== ENCOUNTER → 2023-09-24 | Outpatient (CLI) | payer OTHER ==
[~2023-09-24] MED LIST changes: -GASTROGRAFIN SOLUTION 30ML As Ordered ONE; -ISOVUE-370 76% 100ML VIAL As Ordered ONE
== END ==
LOC: M ONCR 10:34
PROVIDERS: ATTEND General Practice
DX: C79.51 Secondary malignant neoplasm of bone (principal); C54.1 Malignant neoplasm of endometrium; G89.18 Other acute postprocedural pain; Z71.2 Person consulting for explanation of examination or test findings; Z79.1 Long term (current) use of non-steroidal anti-inflammatories (NSAID); Z79.899 Other long term (current) drug therapy; Z90.710 Acquired absence of both cervix and uterus; Z90.722 Acquired absence of ovaries, bilateral; Z90.79 Acquired absence of other genital organ(s); Z92.3 Personal history of irradiation

== ENCOUNTER 2023-10-09 17:17 | Emergency (ER) | payer OTHER ==
[~2023-10-09] VITALS: Ht 160 cm; Wt 88.6 kg
[2023-10-09] MEDS ORDERED: LOVE1INJ SC (17:25)
[2023-10-09] MEDS ORDERED: ACET325C5 PO (17:28)
[2023-10-09] MEDS ORDERED: METOCLOPRAMIDE INJ 10MG/2ML VIAL IV ONE (23:40)
[2023-10-09] MEDS ORDERED: NS 1,000 ML IV ONE (23:40)
[2023-10-09] MEDS ORDERED: dexAMETHasone 20MG/5ML VIAL IV ONE (23:40)
[2023-10-09] MEDS ORDERED: diphenhydrAMINE 50MG/ML VIAL IV ONE (23:40)
[2023-10-10 01:02] VITALS: BP 121/65; TEMP 98.7; O2SAT 100
== END 2023-10-10 01:19 | disposition home or self-care (01) ==
LOC: M ED 17:17
DX: G43.909 Migraine, unspecified, not intractable, without status migrainosus (principal); C54.9 Malignant neoplasm of corpus uteri, unspecified; D25.9 Leiomyoma of uterus, unspecified; Z86.79 Personal history of other diseases of the circulatory system; Z79.1 Long term (current) use of non-steroidal anti-inflammatories (NSAID); Z79.899 Other long term (current) drug therapy
CPT/HCPCS: 96361; 96374; 99284; J1100; J1200; J2765

== ENCOUNTER → 2023-10-14 | Outpatient (CLI) | payer OTHER ==
[~2023-10-14] MED LIST changes: +ACET325C5 PO; +LIDOCAINE 2% MDV 20ML VIAL XX ONE; +LOVE1INJ SC
== END ==
LOC: M ONCR 09:41
PROVIDERS: ATTEND General Practice
DX: R22.41 Localized swelling, mass and lump, right lower limb (principal); R51.9 Headache, unspecified; C54.1 Malignant neoplasm of endometrium; C79.51 Secondary malignant neoplasm of bone; Z71.2 Person consulting for explanation of examination or test findings; Z79.899 Other long term (current) drug therapy; Z90.710 Acquired absence of both cervix and uterus; Z90.722 Acquired absence of ovaries, bilateral; Z90.79 Acquired absence of other genital organ(s); Z92.3 Personal history of irradiation
CPT/HCPCS: 10005; 88305; G0463

== ENCOUNTER → 2023-10-31 | Outpatient (CLI) | payer OTHER ==
[~2023-10-31] MED LIST changes: -LIDOCAINE 2% MDV 20ML VIAL XX ONE
== END ==
LOC: M PLARAD 10:04
PROVIDERS: ATTEND General Practice
DX: C54.1 Malignant neoplasm of endometrium (principal)

== ENCOUNTER → 2023-11-03 | Outpatient (CLI) | payer OTHER | LOC: M PLARAD 12:02 | PROVIDERS: ATTEND General Practice | DX: C54.1 Malignant neoplasm of endometrium (principal); C79.51 Secondary malignant neoplasm of bone | CPT/HCPCS: 78815; A9552 ==

== ENCOUNTER → 2023-12-26 | Outpatient (CLI) | payer OTHER | LOC: M ONCR 09:50 | PROVIDERS: ATTEND General Practice | DX: C54.1 Malignant neoplasm of endometrium (principal); C79.51 Secondary malignant neoplasm of bone; C79.89 Secondary malignant neoplasm of other specified sites; Z86.16 Personal history of COVID-19; Z90.710 Acquired absence of both cervix and uterus; Z92.3 Personal history of irradiation ==

== ENCOUNTER → 2024-02-17 | Outpatient (CLI) | payer OTHER ==
[~2024-02-17] MED LIST changes: +GASTROGRAFIN SOLUTION 30ML As Ordered ONE; +ISOVUE-370 76% 100ML VIAL As Ordered ONE
[2024-02-17 12:55] LABS: BASO % 0.6 % (0.0-1.0); EOS # 0.1 10^3/uL (0.0-0.5); EOS % 2.3 % (0.0-3.0); HEMATOCRIT 36.3 % (36.0-47.0); HEMOGLOBIN 11.7 g/dl (12.0-15.5); LYMPH % 38.6 % (24.0-44.0); MEAN CORPUSCULAR HGB CONC 32.2 g/dl (32.0-36.5); MEAN CORPUSCULAR VOLUME 80.7 fl (80.0-96.0); MONO # 0.5 10^3/uL (0.0-0.8); MONO % 8.9 % (2.0-8.0); NEUTROPHILS # 2.6 10^3/uL (1.5-8.5); NEUTROPHILS % 49.4 % (36.0-66.0); PLATELET COUNT, AUTOMATED 287 10^3/uL (150-450); WHITE BLOOD COUNT 5.3 10^3/uL (4.0-10.0)
[2024-02-17 13:27] LABS: ALBUMIN 3.5 G/DL (3.2-5.2); ALKALINE PHOSPHATASE 59 U/L (46-116); ALT/SGPT 12 U/L (7.0-40); AST/SGOT 13 U/L (<34); BILIRUBIN,TOTAL 0.5 MG/DL (0.3-1.2); BLOOD UREA NITROGEN 14 MG/DL (9-23); CALCIUM LEVEL 9.2 MG/DL (8.5-10.1); CARBON DIOXIDE LEVEL 31 MMOL/L (20-31); CHLORIDE LEVEL 104 MMOL/L (98-107); GLOMERULAR FILTRATION RATE > 60.0 (>58); GLUCOSE, FASTING 78 MG/DL (60-100); POTASSIUM SERUM 4.2 MMOL/L (3.5-5.1); SODIUM LEVEL 138 MMOL/L (136-145); TOTAL PROTEIN 6.6 G/DL (5.7-8.2)
== END ==
LOC: M LAB 12:11 → M RAD 12:11
PROVIDERS: ATTEND General Practice
DX: C54.1 Malignant neoplasm of endometrium (principal); C79.51 Secondary malignant neoplasm of bone

== ENCOUNTER → 2024-02-19 | Outpatient (CLI) | payer OTHER ==
[~2024-02-19] MED LIST changes: -GASTROGRAFIN SOLUTION 30ML As Ordered ONE; -ISOVUE-370 76% 100ML VIAL As Ordered ONE
== END ==
LOC: M ONCR 15:00
PROVIDERS: ATTEND General Practice
DX: R91.8 Other nonspecific abnormal finding of lung field (principal); M79.605 Pain in left leg; C54.1 Malignant neoplasm of endometrium; C79.51 Secondary malignant neoplasm of bone; Z71.2 Person consulting for explanation of examination or test findings; Z79.899 Other long term (current) drug therapy; Z90.710 Acquired absence of both cervix and uterus; Z90.722 Acquired absence of ovaries, bilateral; Z90.79 Acquired absence of other genital organ(s); Z92.3 Personal history of irradiation

== ENCOUNTER → 2024-04-13 | Outpatient (CLI) | payer OTHER | LOC: M ONCR 12:50 | PROVIDERS: ATTEND General Practice | DX: C54.1 Malignant neoplasm of endometrium (principal); C79.51 Secondary malignant neoplasm of bone; C79.89 Secondary malignant neoplasm of other specified sites; M25.511 Pain in right shoulder; R07.89 Other chest pain; Z71.2 Person consulting for explanation of examination or test findings; Z92.3 Personal history of irradiation; Z90.710 Acquired absence of both cervix and uterus; Z90.722 Acquired absence of ovaries, bilateral; Z90.79 Acquired absence of other genital organ(s); Z98.890 Other specified postprocedural states; Z79.01 Long term (current) use of anticoagulants; Z79.899 Other long term (current) drug therapy ==

== ENCOUNTER → 2024-04-15 | Outpatient (CLI) | payer OTHER | LOC: M RAD 07:53 | PROVIDERS: ATTEND General Practice | DX: C54.1 Malignant neoplasm of endometrium (principal); C79.51 Secondary malignant neoplasm of bone ==

== ENCOUNTER → 2024-04-15 | Outpatient (CLI) | payer OTHER ==
[~2024-04-15] MED LIST changes: +PROHANCE 279.3MG/ML 15ML VIAL ONE; +PROHANCE 279.3MG/ML 5ML VIAL ONE
== END ==
LOC: M PLAIMG 14:35
PROVIDERS: ATTEND General Practice
DX: C54.1 Malignant neoplasm of endometrium (principal); C79.51 Secondary malignant neoplasm of bone
CPT/HCPCS: 74183; 76705; A9576

== ENCOUNTER → 2024-04-22 | Outpatient (CLI) | payer OTHER ==
[~2024-04-22] MED LIST changes: +GASTROGRAFIN SOLUTION 30ML As Ordered ONE; +ISOVUE-370 76% 100ML VIAL As Ordered ONE; -PROHANCE 279.3MG/ML 15ML VIAL ONE; -PROHANCE 279.3MG/ML 5ML VIAL ONE
== END ==
LOC: M RAD 13:29
PROVIDERS: ATTEND General Practice
DX: C54.1 Malignant neoplasm of endometrium (principal); C79.51 Secondary malignant neoplasm of bone
CPT/HCPCS: 72193; Q9963; Q9967